=== PATIENT | male | born 1930 | race Caucasian/White ===

== ENCOUNTER → 2017-09-02 | Outpatient (REF) | payer MEDICARE, BC ==
[2015-09-07 15:48] VITALS: BMI 28.2
[~2017-09-02] MED LIST: ACID REDUCER; AREDS; ASP325 PO; ASPI-757 PO; ASPI81TA94 PO; B CO1TAB16 PO; BEV100I INJ; BEV100I IV; BICA50TA36 PO; BICA50TA39 PO; CALC-774 PO; CALC-852 PO; CALC60CR5 TP; CARB1DRO2 OU; DESO15CR2 TP; DOCU-416 PO; EZET1TAB55 PO; EZET1TAB81 PO; FAMO-67 PO; IBUP800T37 PO; IMMODIUM; IMMODIUM PO; LEUP1KIT SQ; LEUP3.753 IM; LOPE1LIQ49 PO; LOPE1TAB55 PO; LOR5/325 PO; MELO-149 PO; MELO-205 PO; METO25TA91 PO; MULT-865 PO; MULTIVIT; OCU PO; OSCAL PO; PERSERVISION; PHEN200T32 PO; PRO25 PO; QUIN324 PO; SANCTURA PO; SODI100G4 DT; SODI51CR DT; TAMS0.4C25 PO; TOLT2CAP7 PO; TRIA15CR40 TP; TROS60CA PO; VIT1CAPS9 PO; VITA-131 PO; VITORIN; [UNRECOGNIZED DRUG - CODE] OP; [UNRECOGNIZED DRUG - CODE] PO; [UNRECOGNIZED DRUG - OTHER]
== END ==
LOC: ZZSENDIN 13:24
DX: R31.1 Benign essential microscopic hematuria (principal)
CPT/HCPCS: 81001; 87088

== ENCOUNTER → 2017-09-12 | Outpatient (CLI) | payer MEDICARE, BC ==
[2015-09-07 15:48] VITALS: BMI 28.2
--- NOTE | 2017-09-12 16:51 | RADIOLOGY IMAGING REPORT ---
[place] [facility] [place] NAME: Steve Goodson : 1930 MR: [id number] V: [id number] EXAM DATE: ORDERING PHYSICIAN: TEJAS CAICEDO TECHNOLOGIST: Location: [facility] Patient: Steve Goodson : 1930 Visit/Account:[id number] Date of Sevice: 09/12/2017 ADDENDUM #1 I am having the [facility]'s call the absence of acute findings to TEJAS CAICEDO for me at 09/12/2017 4:50 PM Report Dictated By: Juanjose Fish MD at 09/12/2017 4:51 PM Report E-Signed By: Juanjose Fish MD at 09/12/2017 4:51 PM ORIGINAL REPORT EXAMINATION: CT Cervical Spine Without Contrast 09/12/2017 4:00 PM HISTORY: fall 09/09, hit head, double vision, headache COMPARISON STUDIES: Separate CT head today TECHNIQUE: Axial images were obtained from the skull base through the upper thoracic spine without I V contrast administration. Coronal and sagittal reformatted images were obtained from the axial [place] e data. One of the following dose optimization techniques was utilized in the performance of this exam: Autom ated exposure control; adjustment of the mA and/or kV according to the patient's size; or use of an i terative reconstruction technique. Specific details can be referenced in the facility's radiology C T exam operational policy. FINDINGS: Pre-vertebral soft tissues: negative Alignment: 3 mm degenerative anterolisthesis C6 on C7. Vertebral bodies: negative Posterior elements: No acute injury. Right facet bony fusion from C4 through C6 which is probably deg enerative in etiology. Disc Spaces: Disc loss and spurring most notably C5-6 and C6-7. Visualized soft tissues anterior neck: Carotid atherosclerosis. Visualized lung / mediastinum: negative IMPRESSION: No acute bony injury of the cervical spine. Report Dictated By: Juanjose Fish MD at 09/12/2017 4:45 PM Report E-Signed By: Juanjose Fish MD at 09/12/2017 4:49 PM WSN:[email or web address]
--- NOTE | 2017-09-12 16:53 | RADIOLOGY IMAGING REPORT ---
FACILITY: [facility] PATIENT NAME: Steve Goodson : 1930 MR: [id number] V: [id number] EXAM DATE: ORDERING PHYSICIAN: TEJAS CAICEDO TECHNOLOGIST: Location: [facility] [place] Patient: Steve Goodson : 1930 Visit/Account:[id number] Date of Sevice: 09/12/2017 ADDENDUM #1 I am having the [facility]'s call the absence of acute findings to TEJAS CAICEDO for me at 09/12/2017 4:50 PM Report Dictated By: Juanjose Fish MD at 09/12/2017 4:50 PM Report E-Signed By: Juanjose Fish MD at 09/12/2017 4:51 PM ORIGINAL REPORT EXAMINATION: CT Head Without Contrast 09/12/2017 4:00 PM HISTORY: fall 09/09, hit head, double vision, headache TECHNIQUE: Contiguous axial images were obtained from the skull base to the vertex without intraven ous contrast. One of the following dose optimization techniques was utilized in the performance of this exam: Autom ated exposure control; adjustment of the mA and/or kV according to the patient's size; or use of an i terative reconstruction technique. Specific details can be referenced in the facility's radiology C T exam operational policy. COMPARISON STUDIES: Separate CT cervical spine today. FINDINGS: Ventricles / sulci / fissures: Enlarged but within normal limits for age. Masses / hemorrhage / midline shift: negative White matter: Mild number of white matter lucencies, non-specific and age appropriate. Castillo-white differentiation: negative Extra-axial spaces: negative Dural venous sinuses / arterial structures: Intracranial atherosclerosis. Skull base / calvarium: No acute bony injury. Incidental hyperostosis frontalis interna. Prior bilate ral surgery. Visualized mastoid air cells / paranasal sinuses: negative IMPRESSION: Unremarkable head CT for age. No evidence of mass, acute ischemia or hemorrhage. Report Dictated By: Juanjose Fish MD at 09/12/2017 4:40 PM Report E-Signed By: Juanjose Fish MD at 09/12/2017 4:49 PM WSN:[email or web address]
== END ==
LOC: RAD 15:41
PROVIDERS: ATTEND Nurse Practitioner Family
DX: S09.90XA Unspecified injury of head, initial encounter (principal)
CPT/HCPCS: 70450; 72125

== ENCOUNTER → 2017-10-01 | Outpatient (CLI) | payer MEDICARE, BC ==
[2015-09-07 15:48] VITALS: BMI 28.2
--- NOTE | 2017-10-01 14:24 | RADIOLOGY IMAGING REPORT ---
FACILITY: [facility] PATIENT NAME: Steve Goodson : 1930 MR: [id number] V: [id number] EXAM DATE: ORDERING PHYSICIAN: SHADI AHN TECHNOLOGIST: Location: [facility] Patient: Steve Goodson : 1930 Visit/Account:[id number] Date of Sevice: 10/01/2017 US SINGLE ORGAN, bladder ultrasound HISTORY: Overflow bladder incontinence COMPARISON: None. FINDINGS: Urinary bladder prevoid volume 81.3 mL. The patient stated to the technologist that this was her max imum bladder volume. Bilateral ureteral jets are present. Post void bladder residual zero. The aor ta and IVC are patent IMPRESSION: Urinary bladder prevoid volume 81.3 mL and postvoid residual zero Report Dictated By: Connie Llanes MD at 10/01/2017 2:17 PM Report E-Signed By: Connie Llanes MD at 10/01/2017 2:19 PM WSN:[email or web address]
== END ==
LOC: US 00:53
DX: N39.490 Overflow incontinence (principal)
CPT/HCPCS: 76705

== ENCOUNTER → 2018-02-26 | Outpatient (CLI) | payer MEDICARE, BC ==
[2015-09-07 15:48] VITALS: BMI 28.2
[~2018-02-26] MED LIST changes: +BICA50TA13 PO; -BICA50TA36 PO; -BICA50TA39 PO; +BICA50TA41 PO; +FLUT16SP19 NS
[2018-02-26 17:21] LABS: PLATELET COUNT, AUTOMATED 153 K/uL (150-450)
== END ==
LOC: LAB 16:57
PROVIDERS: ATTEND Family Medicine
DX: R53.83 Other fatigue (principal); R63.4 Abnormal weight loss
CPT/HCPCS: 36415; 82040; 82247; 82310; 82374; 82435; 82565; 82947; 84075; 84132; 84155; 84295; 84443; 84450; 84460; 84520; 85025

== ENCOUNTER → 2018-05-28 | Outpatient (CLI) | payer MEDICARE, BC ==
[2015-09-07 15:48] VITALS: BMI 28.2
[~2018-05-28] MED LIST changes: +ALB18R INH; +CELE100C79 PO; +GUAI600T57 PO; +IPRA3AMP10 IH
[2018-05-28 11:03] LABS: PLATELET COUNT, AUTOMATED 179 K/uL (150-450)
[2018-05-28 11:19] LABS: LDL CHOLESTEROL 44 mg/dl
== END ==
LOC: LAB 10:15
PROVIDERS: ATTEND Family Medicine
DX: C61 Malignant neoplasm of prostate (principal); R53.83 Other fatigue
CPT/HCPCS: 36415; 82040; 82247; 82310; 82374; 82435; 82465; 82565; 82947; 83718; 84075; 84132; 84153; 84155; 84295; 84443; 84450; 84460; 84478; 84520; 85025; 85651; 86140

== ENCOUNTER → 2018-11-06 | Outpatient (CLI) | payer MEDICARE, BC ==
[2015-09-07 15:48] VITALS: BMI 28.2
[~2018-11-06] MED LIST changes: +IOPAMIDOL 76% 100 ML INFUS BTL 100 ML ONE; +ONDA8TAB98 PO
--- NOTE | 2018-11-06 15:33 | RADIOLOGY IMAGING REPORT ---
FACILITY: [facility] PATIENT NAME: Steve Goodson : 1930 MR: [id number] V: [id number] EXAM DATE: ORDERING PHYSICIAN: BHAVIK VALLADARES TECHNOLOGIST: Location: [facility] Patient: Steve Goodson : 1930 Visit/Account:[id number] Date of Sevice: 11/06/2018 CT ABDOMEN PELVIS W/ CON HISTORY: Lower abdominal pain x2 days TECHNIQUE: Following administration of IV contrast contiguous axial images acquired through the abdom en/pelvis. Coronal and sagittal reformatting also performed.Dose Lowering Technique One of the following dose optimization techniques was utilized in the performance of this exam: Autom ated exposure control; adjustment of the mA and/or kV according to the patient's size; or use of an i terative reconstruction technique. Specific details can be referenced in the facility's radiology C T exam operational policy. CONTRAST: 75 mL Isovue-[id number] COMPARISON: September 05, 2015 FINDINGS: Visualized lung bases: There is a tiny left pleural effusion/pleural thickening. There are calcific ations in the coronary arteries, mitral annulus and at the root of the aorta Hepatobiliary: There postsurgical changes from a cholecystectomy. There is dilatation of the intra and extrahepatic biliary tree. The common bile duct measures up to 1.4 cm in diameter this has marke dly increased when compared to the prior study. These changes could be simply postsurgical in nature however an obstructing calculus or mass cannot be excluded Spleen: Negative. Adrenals: Negative. 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 This is relativel y unchanged when compared the prior study. Kidneys ureters or bladder: There is subcentimeter cortical hypodensities in both kidneys which may r epresent cysts although are too small to characterize there is mild bladder wall thickening Genitalia: Prostate gland is not identified GI: There is diverticulosis of the left-sided the colon although no CT evidence of acute diverticulit is. There are postsurgical changes from a right hemicolectomy Vessels/spaces/nodes: There moderate atherosclerotic calcifications throughout the abdomen and pelvi s. Bones/soft tissues: There are multiple small ventral hernias in the supraumbilical portion of the an terior abdominal wall all containing fat. The largest hernia opening is 1.8 cm in diameter. There are small bilateral inguinal hernias containing fat. There are spondylotic changes of lumbar spine Additional findings: None pertinent. IMPRESSION: There is marked intra and extrahepatic biliary ductal dilatation which has increased when compared to the prior study from September 05, 2015. These changes could be related to the prior cholecystectomy. Nonobstructing calculus or mass cannot be excluded. If this is of clinical concern MRCP is recommend ed. 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
== END ==
LOC: CT 14:14
PROVIDERS: ATTEND Nurse Practitioner Primary Care
DX: K83.8 Other specified diseases of biliary tract (principal); K86.89 Other specified diseases of pancreas; Z98.890 Other specified postprocedural states; K57.30 Diverticulosis of large intestine without perforation or abscess without bleeding; K43.9 Ventral hernia without obstruction or gangrene; K40.20 Bilateral inguinal hernia, without obstruction or gangrene, not specified as recurrent; I25.10 Atherosclerotic heart disease of native coronary artery without angina pectoris; J90 Pleural effusion, not elsewhere classified
CPT/HCPCS: 74177; Q9967

== ENCOUNTER → 2018-11-06 | Outpatient (CLI) | payer MEDICARE, BC ==
[2015-09-07 15:48] VITALS: BMI 28.2
[~2018-11-06] MED LIST changes: -IOPAMIDOL 76% 100 ML INFUS BTL 100 ML ONE
[2018-11-06 11:59] LABS: PLATELET COUNT, AUTOMATED 199 K/uL (150-450)
== END ==
LOC: LAB 11:42
PROVIDERS: ATTEND Nurse Practitioner Primary Care
DX: R10.30 Lower abdominal pain, unspecified (principal)
CPT/HCPCS: 36415; 81001; 82040; 82247; 82310; 82374; 82435; 82565; 82947; 84075; 84132; 84155; 84295; 84450; 84460; 84520; 85025